=== PATIENT | female | born 1965 | race Caucasian/White ===

== ENCOUNTER → 2017-01-25 | Outpatient (CLI) | payer BC | LOC: MC.RAD 07:36 | DX: Z12.31 Encounter for screening mammogram for malignant neoplasm of breast (principal) ==

== ENCOUNTER → 2018-02-18 | Outpatient (CLI) | payer OTHER | LOC: MC.RAD 06:52 | DX: Z12.31 Encounter for screening mammogram for malignant neoplasm of breast (principal) ==

== ENCOUNTER → 2019-02-20 | Outpatient (CLI) | payer OTHER | LOC: MC.RAD 13:39 | DX: Z12.31 Encounter for screening mammogram for malignant neoplasm of breast (principal) ==

== ENCOUNTER 2019-05-05 06:52 | Day surgery (SDC) | payer BC ==
[~2019-05-05] VITALS: Ht 165.1 cm; Wt 66.8 kg
[2019-05-05 07:22] VITALS: BP 117/64; PULSE 63; TEMP 97.9
[2019-05-05] MEDS ORDERED: ESTRACE0.5 MG PO (07:26)
[2019-05-05 08:50] VITALS: BP 111/56; PULSE 76; TEMP 97.8
--- NOTE | 2019-05-05 08:50 | NUR ---
Pt to [facility] via cart from ENDO. Pt drowsy, but awakens to verbal stimuli easily. Pt ambulates to recliner with stand by assistance. VSS. Pt denies pain or nausea. Pt does not want anything to drink or eat at this time. Lights dimmed to let pt rest. Will continue to monitor. Call light within reach.
[2019-05-05 09:05] VITALS: BP 89/58; PULSE 81
--- NOTE | 2019-05-05 09:05 | NUR ---
Pt sleeping. Respirations even and unlabored. Will continue to monitor.
[2019-05-05 09:20] VITALS: BP 90/48; PULSE 61
--- NOTE | 2019-05-05 09:20 | NUR ---
Pt continues to sleep. Respirations even and unlabored. Call light within reach.
[2019-05-05 09:35] VITALS: BP 86/56; PULSE 55
--- NOTE | 2019-05-05 09:35 | NUR ---
Pt continues to sleep. Respirations even and unlabored.
--- NOTE | 2019-05-05 09:52 | NUR ---
Pt awakens easily with verbal stimuli. Juice given per pt request. Will continue to monitor. Blood pressure 98/62 at this time while awake.
[2019-05-05 10:03] VITALS: BP 101/63; PULSE 58
--- NOTE | 2019-05-05 10:03 | NUR ---
Pt awake and taking sips of juice. Denies pain or nausea. Will continue to monitor. Call light within reach.
--- NOTE | 2019-05-05 10:10 | NUR ---
Discharge instructions reviewed. Pt voices understanding. IV site discontinued with all parts intact. Pt up to dress. Call light within reach.
--- NOTE | 2019-05-05 10:25 | NUR ---
Pt escorted to private car via wheel chair. Pt accompanied home by her .
== END 2019-05-05 10:28 | disposition home or self-care (01) ==
LOC: SDCO 06:52
DX: Z12.11 Encounter for screening for malignant neoplasm of colon (principal); D12.5 Benign neoplasm of sigmoid colon; Z90.710 Acquired absence of both cervix and uterus
CPT/HCPCS: J2250; J3010; J7030

== ENCOUNTER → 2020-02-27 | Outpatient (CLI) | payer BC ==
[~2020-02-27] MED LIST: ESTRACE0.5 MG PO
== END ==
LOC: MC.RAD 16:09
DX: Z12.31 Encounter for screening mammogram for malignant neoplasm of breast (principal)

== ENCOUNTER → 2021-04-17 | Outpatient (CLI) | payer BC | LOC: MC.RAD 16:13 | DX: Z12.31 Encounter for screening mammogram for malignant neoplasm of breast (principal) ==